=== PATIENT | female | born 1935 | race Asian ===

== ENCOUNTER 2016-10-07 09:59 | Outpatient (RCR) | payer MEDICARE, OTHER ==
[~2016-10-07] VITALS: Ht 147.3 cm; Wt 49.9 kg
[2016-10-10] MEDS ORDERED: Lidocaine 2% MPF 5ml Vial INJ ONE (11:15)
[2016-10-10] MEDS ORDERED: Silver Sulfadiazine Cream 25gm TOPIC ONE (11:15)
== END 2016-10-13 | disposition home or self-care (01) ==
LOC: WCC 09:59
DX: L98.492 Non-pressure chronic ulcer of skin of other sites with fat layer exposed (principal); E11.622 Type 2 diabetes mellitus with other skin ulcer; I10 Essential (primary) hypertension; I25.10 Atherosclerotic heart disease of native coronary artery without angina pectoris; E78.5 Hyperlipidemia, unspecified; K21.9 Gastro-esophageal reflux disease without esophagitis
CPT/HCPCS: 11042; 11043

== ENCOUNTER 2016-10-14 10:03 | Outpatient (RCR) | payer MEDICARE, OTHER ==
[~2016-10-14] VITALS: Ht 142.2 cm; Wt 49.9 kg
[2016-10-25] MEDS ORDERED: Lidocaine HCl 2% Jelly 5ml Tube TOPIC ONE (15:45)
[2016-10-31] MEDS ORDERED: Lidocaine HCl 2% Jelly 5ml Tube TOPIC ONE (16:45)
== END 2016-11-13 | disposition home or self-care (01) ==
LOC: WCC 10:03
DX: L98.492 Non-pressure chronic ulcer of skin of other sites with fat layer exposed (principal); E11.622 Type 2 diabetes mellitus with other skin ulcer; Z95.5 Presence of coronary angioplasty implant and graft; I25.10 Atherosclerotic heart disease of native coronary artery without angina pectoris; I10 Essential (primary) hypertension; K21.9 Gastro-esophageal reflux disease without esophagitis
CPT/HCPCS: 11042; 11043; 15004; C5275; C5276; Q4124

== ENCOUNTER 2016-11-18 09:00 | Outpatient (RCR) | payer MEDICARE, OTHER | END 2016-12-13 | disposition home or self-care (01) | LOC: WCC 09:00 | DX: L98.492 Non-pressure chronic ulcer of skin of other sites with fat layer exposed (principal); E11.622 Type 2 diabetes mellitus with other skin ulcer; Z95.5 Presence of coronary angioplasty implant and graft; I10 Essential (primary) hypertension; K21.9 Gastro-esophageal reflux disease without esophagitis; I25.10 Atherosclerotic heart disease of native coronary artery without angina pectoris; Z79.82 Long term (current) use of aspirin | CPT/HCPCS: 15275; Q4133 ==